=== PATIENT | male | born 1975 | race Caucasian/White ===

== ENCOUNTER 2020-02-12 11:55 | Emergency (ER) | payer MEDICARE, SELFPAY ==
--- NOTE | 2020-02-12 11:56 | ED_ITS ---
Entered by Gertrude Ji, acting as scribe for Nimesh Brown DO HPI - Extremity Problem General: Chief complaint: Extremity Injury, Upper Stated complaint: left HAND INJURY Time Seen by Provider: 02/12/20 11:56 History of Present Illness: HPI Narrative: 44 yo male presents with left hand injury. Pt states that he was using a saw and it kicked back on him. MD Complaint: extremity pain Onset (ago): hour(s) Pain Consistency: constant Quality: sharp and constant Review of Systems 2 General: Reports: 10 or more systems reviewed and unremarkable except in HPI and below PFSH ED PFSH: Social History Smoking and tobacco status: current every day smoker Physical Exam Narrative: EXAM NARRATIVE: Partial amputation of the left index finger. Near complete amputation of the left middle finger without distal blood flow. Patient suffered the wounds accidentally while using a table saw. Extremity: LEFT UPPER EXTREMITY: Yes hand & digits Course Vital Signs: Vital signs: Vital Signs Pulse Rate 89 02/12/20 13:09 Respiratory Rate 16 02/12/20 13:09 Blood Pressure 136/85 02/12/20 13:09 Pulse Oximetry 97 02/12/20 13:09 MDM - Extremity (Nontraumatic) MDM Narrative: Medical decision making narrative: Patient's wounds are too severe to be treated in the emergency department. I contacted [facility] and spoke with their hand surgeon who has accepted the patient for transfer. Patient will be emergently transferred to [facility] in [facility]. Discharge Plan Discharge Patient Disposition: Xfer Other Clinical Impression: Laceration of index finger Qualifiers: Encounter type: initial encounter Damage to nail status: unspecified Foreign body presence: unspecified Laterality: left Qualified Code(s): S61.211A - Laceration without foreign body of left index finger without damage to nail, initial encounter Laceration of middle finger Qualifiers: Encounter type: initial encounter Damage to nail status: unspecified Foreign body presence: unspecified Laterality: left Qualified Code(s): S61.213A - Lacera tion without foreign body of left middle finger without damage to nail, initial encounter Partial traumatic amputation of left index finger through phalanx Qualifiers: Encounter type: initial encounter Qualified Code(s): S68.621A - Partial traumatic transphalangeal amputation of left index finger, initial encounter Partial traumatic amputation of left middle finger through phalanx Qualifiers: Encounter type: initial encounter Qualified Code(s): S68.623A - Partial traumatic transphalangeal amputation of left middle finger, initial encounter Condition: Serious Discharge Orders: Transfer Out of Facility (Order); Ordered 02/12/20 Ordered By: Nimesh Brown Coding Level of Care Code ED Application Architect Manager for Chg Fwd Exam Problem Focused The documentation recorded by the Garrison novak Kialy, accurately reflects the service I personally performed and the decisions made by , Nimesh Brown, DO Feb 12, 2020 11:55
[2020-02-12 11:57] VITALS: BP 162/102; PULSE 106; RESP 22; O2SAT 96; BMI 25.7
--- NOTE | 2020-02-12 12:01 | XR_ITS ---
WS: [id number] XR hand LT min 3V* [id number] REASON FOR EXAM: trauma FINDINGS: A comminuted fracture of the middle second and third phalanges. The second phalanx shows displacement and angulation. XR/XR hand LT min 3V* [id number] IMPRESSION: Negative fractures of the middle second and third phalanges with angulation of the fractures.
[2020-02-12 12:16] VITALS: RESP 16
[2020-02-12] MEDS: ondansetron 2 mg/ML SDV 2 mL 4 MG IVP (12:16)
[2020-02-12] MEDS: morphine 4 mg/mL SDV 1 mL IVP (12:16)
[2020-02-12] MEDS: ceFAZolin 1,000 MG in sodium chloride 0.9% (plus) 50 ML 100 MG IV (12:17)
[2020-02-12] MEDS: fentaNYL 50 mcg/mL INJ 2mL IVP ×2 (12:28→13:50)
[2020-02-12] MEDS: sodium chloride 0.9% 1,000 ML 150 ML IV (12:30)
[2020-02-12 13:09] VITALS: BP 136/85; PULSE 89; RESP 16; O2SAT 97
== END 2020-02-12 14:06 | disposition other institution (70) ==
PROVIDERS: Emergency Provider Family Medicine
DX: S68.621A Partial traumatic transphalangeal amputation of left index finger, initial encounter (principal); S68.623A Partial traumatic transphalangeal amputation of left middle finger, initial encounter; F17.200 Nicotine dependence, unspecified, uncomplicated; W31.2XXA Contact with powered woodworking and forming machines, initial encounter
CPT/HCPCS: 12345; 73130; 96361; 96365; 96374; 96375; 99282; 99285; A4590; J0690; J2270; J2405; J3010; J7030

== ENCOUNTER 2020-05-15 20:00 | Outpatient (CLI) | payer OTHER, SELFPAY | END 2020-05-15 20:01 | disposition home or self-care (01) | LOC: SLEEP 05-16 08:37 | PROVIDERS: Visit Provider Psychiatry & Neurology Psychiatry | DX: G47.8 Other sleep disorders (principal); R06.83 Snoring; R53.83 Other fatigue | CPT/HCPCS: 95810 ==

== ENCOUNTER 2022-05-16 09:38 | Emergency (ER) | payer OTHER, MEDICARE, SELFPAY ==
[2022-05-16 09:45] VITALS: BP 143/101; PULSE 90; RESP 14; TEMP 36.5; O2SAT 98; BMI 27.9
--- NOTE | 2022-05-16 09:57 | ED_ITS ---
HPI - Abdominal Pain General: Chief Complaint: Abdominal Pain Stated Complaint: abd pain Time Seen by Provider: 05/16/22 09:39 History of Present Illness: Mr. Vanessa is a 46-year-old gentleman who presents to the emergency department due to abdominal pain. Onset of symptoms was appro ximately 6 hours ago and subacute. He was woken up by sleep with a severe right lower quadrant abdominal cramping. He has had associated nausea but no vomiting. He does endorse hematuria. There is no radiation of pain to testicles or groin. Denies trauma. Otherwise was previously at baseline h ealth. Overall course of symptoms has persisted. No other specific changes in health, exacerbating, or alleviating factors identified. Onset (ago): hour(s) Pain Consistency: constant Location: RLQ Severity: severe Quality: cramping Review of Systems General: Reports: 10 or more systems reviewed and unremarkable except in HPI and below PFSH ED PFSH: Medical History PTSD (post-traumatic stress disorder) Renal calculus Family History Mother Allergic to sunlight Cancer Skin Father , at age 72 Cancer Colon and lung Social History Smoking and tobacco status: current every day smoker Alcohol intake: current Alcohol intake frequency: few times a week Adopted: No Lives independently: Yes Housing: House Marital status: service: Yes branch: [employer] Current occupational status: disabled History of recent travel: No Physical Exam Const: COMMON NORMALS: alert GENERAL APPEARANCE: cooperative and well developed HENMT: COMMON NORMALS: normocephalic and atraumatic HEAD & SCALP: normocephalic and atraumatic Eye: COMMON NORMALS: conjunctivae normal CONJUNCTIVA: Yes conjunctivae normal SCLERA: sclerae normal Neck/C-Spine: COMMON NORMALS: supple GENERAL: Yes trachea midline Resp: COMMON NORMALS: normal respiratory effort EFFORT & INSPECTION: Yes able to speak in complete sentences Cardio: COMMON NORMALS: regular rate and regular rhythm RATE: regular rate RHYTHM: regular rhythm GI: COMMON NORMALS: Soft to palpation PALPATION: Yes Soft to palpation, Yes Tenderness to palpation present (GI), No Guarding due to palpation present (GI), No Rigid due to palpation and No Rebound tenderness present PERCUSSION: normal to percussion Extremity: GENERAL: Yes normal exam except as noted and No edema Neuro: COMMON NORMALS: moves all extremities SENSORIUM/ORIENTATION: Yes alert and No Orientation impaired Psych: COMMON NORMALS: mental status grossly normal and Normal thought process present THOUGHT PROCESS: Normal thought process present Course ED course: - Patient was seen and evaluated by me at bedside - Patient placed on cardiac monitors, IV access obtained - Initial evaluation notable for exam as above, somewhat uncomfortable appearing - Labs personally interpreted by me -Fluids, analgesia, antiemetic given - Labs notable for no leukocytosis, normal hemoglobin. Metabolic panel without acute abnormality with exception of mild transaminitis of uncertain etiology. Urinalysis with too numerous to count RBCs and WBCs though only trace bacteria. - Imaging notable for mild right hydronephrosis with perinephric stranding sec ondary to 1.2 cm partially obstructing calculus in the right renal pelvis. - Upon serial reexamination after treatment the patient was transiently improved and required additional doses of analgesia - Based on patient history, evaluation, and testing as interpreted the most likely cause of the patient's condition is nephrolithiasis. I am concerned given the number by consulting us otherwise uncontaminated sample that patient has infected kidney stone. Certainly given the size it is very unlikely to pass on its own. Unfortunately we do not have urology on-call. Antibiotic ordered. - The results of ED evaluation were discussed with the patient including plan for transfer due to requirement for level of care not available if discharged to prevent significant worsening/deterioration. - Patient was discussed with urology Dr. Phipps in [facility]. Recommended ER to ER transfer and I discussed with Dr. Almeida who accepted the patient as ER to ER transfer. - Patient was transferred and left to the emergency department without further deterioration or significant events. Note: Click bubbles or prepopulated lakhani in note writing are used for assistance with data collection and billing and are inherently more limited than narrative and other text portions of this note. Please use narrative for additional clinical history and defer to narrative/free test for any case of contradictory information. If information appears in only free text or click bubble it should be considered present or absent as reported. Please contact note senior underwriter for clarifications of clinical information or contradictory information. MDM is a brief summary, contradictory or erroneous seeming information should be clarified and full note should be reviewed. Vital Signs: Vital signs: Vital Signs Temperature 97.7 F 05/16/22 09:45 Pulse Rate 66 05/16/22 17:09 Respiratory Rate 16 05/16/22 17:28 Blood Pressure 127/79 05/16/22 17:09 Pulse Oximetry 96 05/16/22 17:28 MDM - Abdominal Pain Medical Decision Making 46-year-old gentleman presenting with abdominal pain. Patient found to have partially obstructing large kidney stone in the renal pelvis. Though patient has not had fevers yet he does have too numerous to count white blood cells in his urine which is concerning for infected kidney stone. Urology is not on-call at our facility. Patient transferred due to [place] for urology services and definitive care. Medical Records I reviewed the patient's medical records. Lab Data I reviewed the patient's lab results. : 05/16/22 10:23 05/16/22 10:23 Labs/Radiology: Radiology Impressions Abdomen/Pelvis CT 05/16/22 11:40 IMPRESSION: 1. Mild right-sided hydronephrosis and perinephric stranding, secondary to a 1.2 cm partially obstructing calculus in the right renal pelvis. 2. Additional findings, as above. Laboratory Results WBC 6.8 10^3/uL (4.0-10.0) 05/16/22 10:23 RBC 4.96 10^6/uL (4.1-5.3) 05/16/22 10:23 Hgb 15.4 g/dL (11.7-16.6) 05/16/22 10:23 Hct 44.0 % (42.0-52.0) 05/16/22 10:23 MCV 88.7 fl (80-94) 05/16/22 10:23 MCH 31.0 pg (28.0-34.0) 05/16/22 10:23 MCHC 35.0 g/dL (30.0-36.0) 05/16/22 10:23 RDW 12.2 % (12.1-15.1) 05/16/22 10:23 Plt Count 164 10^3/cmm (130-400) 05/16/22 10:23 MPV 11.5 fL (7.4-10.4) H 05/16/22 10:23 Neut % (Auto) 55.8 % 05/16/22 10:23 Lymph % (Auto) 34.7 % 05/16/22 10:23 Juncos % (Auto) 5.9 % 05/16/22 10:23 Eos % (Auto) 2.7 % 05/16/22 10:23 Baso % (Auto) 0.6 % 05/16/22 10:23 Neut # (Auto) 3.77 10^3/uL (1.8-7.7) 05/16/22 10:23 Lymph # (Auto) 2.3 10^3/uL (0.8-4.8) 05/16/22 10:23 Juncos # (Auto) 0.4 10^3/uL (0.2-0.9) 05/16/22 10:23 Eos # (Auto) 0.2 10^3/uL (0.0-0.8) 05/16/22 10:23 Baso # (Auto) 0.0 10^3/uL (0.0-0.1) 05/16/22 10:23 Nucleated RBC % (auto) 0 % 05/16/22 10:23 Nucleated RBCs # 0.0 /100WBC 05/16/22 10:23 Sodium 139 mmol/L (136-145) 05/16/22 10:23 Potassium 4.5 mmol/L (3.5-5.1) 05/16/22 10:23 Chloride 104 mmol/L (98-107) 05/16/22 10:23 Carbon Dioxide 24 mmol/L (22-29) 05/16/22 10:23 Anion Gap 15.5 (5-19) 05/16/22 10:23 BUN 10 mg/dL (6-20) 05/16/22 10:23 Creatinine 0.8 mg/dL (0.7-1.2) 05/16/22 10:23 GFR Calculation 104.5 mL/min (90-130) 05/16/22 10:23 Glucose 102 mg/dL (65-115) 05/16/22 10:23 Calculated Osmolality 287 mOsm/kg (285-295) 05/16/22 10:23 Calcium 8.7 mg/dL (8.5-10.5) 05/16/22 10:23 Total Bilirubin 0.4 mg/dL (0.15-1.2) 05/16/22 10:23 AST 101 U/L (0-40) H 05/16/22 10:23 ALT 122 U/L (0-41) H 05/16/22 10:23 Alkaline Phosphatase 89 IU/L (40-130) 05/16/22 10:23 Total Protein 7.6 g/dL (6.6-8.7) 05/16/22 10:23 Albumin 4.8 g/dL (3.5-5.2) 05/16/22 10:23 Globulin 2.8 g/dL (1.3-4.6) 05/16/22 10:23 Lipase 22 U/L (13-60) 05/16/22 10:23 Urine Color Yellow (Yellow) 05/16/22 13:26 Urine Appearance Hazy (CLEAR) A 05/16/22 13:26 Urine pH 8 (5-7) H 05/16/22 13:26 Ur Specific [place] 1.015 (1.005-1.030) 05/16/22 13:26 Urine Protein 1+ (Negative) H 05/16/22 13:26 Urine Glucose (UA) Norm (Normal) 05/16/22 13:26 Urine Ketones Negative (Negative) 05/16/22 13:26 Urine Blood 3+ (Negative) H 05/16/22 13:26 Urine Nitrate Negative (Negative) 05/16/22 13:26 Urine Bilirubin Neg (Negative) 05/16/22 13:26 Urine Urobilinogen Norm mg/dL (Negative) 05/16/22 13:26 Ur Leukocyte Esterase 2+ (Negative) H 05/16/22 13:26 Urine RBC Too numerous to cnt /hpf (0-2) H 05/16/22 13:26 Urine WBC Too numerous to cnt /hpf (0-5) H 05/16/22 13:26 Ur Squamous Epith Cells 0-4 /hpf (0-5) H 05/16/22 13:26 Amorphous Sediment Not Reportable 05/16/22 13:26 Urine Bacteria Trace /hpf (NONE) 05/16/22 13:26 Discharge Plan Discharge Patient Disposition: Transfer to ED Clinical Impression: Kidney stone, Hydronephrosis, Pyuria Condition: Stable Prescriptions: No Action cephalexin 500 mg capsule 500 mg PO TID 0RF tamsulosin 0.4 mg capsule 0.4 mg PO DAILY 0RF sertraline 100 mg Tablet 100 mg PO DAILY 0RF cyclobenzaprine 10 mg Tablet 10 mg PO TID PRN (Reason: Muscle Pain) 0RF quetiapine [Seroquel] 200 mg Tablet 100 mg PO BEDTIME 0RF buspirone 10 mg Tablet 10 mg PO BID PRN (Reason: Anxiety) 0RF naproxen 500 mg Tablet 500 mg PO BID 0RF rosuvastatin [Crestor] 40 mg Tablet 40 mg PO DAILY 0RF cholecalciferol (vitamin D3) [Vitamin D3] 50 mcg (2,000 unit) Tablet 50 mcg PO DAILY 0RF Coding Level of Care Code ED Forklift Technician for Bernabeg Fwd Exam Comprehensive
[2022-05-16 10:31] LABS: Basophils % 0.6 %; Eosinophils # 0.2 10^3/uL (0.0-0.8); Eosinophils % 2.7 %; Hemoglobin 15.4 g/dL (11.7-16.6); Lymphocytes # 2.3 10^3/uL (0.8-4.8); Lymphocytes % 34.7 %; Mean Corpuscular Volume 88.7 fl (80-94); Mean Platelet Volume 11.5 fL (7.4-10.4); Monocytes # 0.4 10^3/uL (0.2-0.9); Monocytes % 5.9 %; Neutrophils # 3.77 10^3/uL (1.8-7.7); Neutrophils % 55.8 %; Nucleated Red Blood Cells % 0 %; Platelet Count 164 10^3/cmm (130-400); Red Blood Count 4.96 10^6/uL (4.1-5.3); Red Cell Distribution Width 12.2 % (12.1-15.1); White Blood Count 6.8 10^3/uL (4.0-10.0)
[2022-05-16 10:37] VITALS: RESP 18; O2SAT 96
[2022-05-16] MEDS: morphine 4 mg/mL SDV 1 mL IVP ×3 (10:37→17:28)
[2022-05-16] MEDS: ondansetron 2 mg/ML SDV 2 mL 4 MG IVP (10:37)
[2022-05-16 10:49] LABS: Alanine Aminotransferase 122 U/L (0-41); Albumin Level 4.8 g/dL (3.5-5.2); Alkaline Phosphatase 89 IU/L (40-130); Anion Gap 15.5 (5-19); Aspartate Amino Transferase 101 U/L (0-40); Blood Urea Nitrogen 10 mg/dL (6-20); Calcium 8.7 mg/dL (8.5-10.5); Carbon Dioxide 24 mmol/L (22-29); Chloride 104 mmol/L (98-107); Globulin 2.8 g/dL (1.3-4.6); Glomerular Filtration Rate 104.5 mL/min (90-130); Glucose 102 mg/dL (65-115); Lipase 22 U/L (13-60); Osmolality Calculated 287 mOsm/kg (285-295); Potassium 4.5 mmol/L (3.5-5.1); Sodium 139 mmol/L (136-145); Total Bilirubin 0.4 mg/dL (0.15-1.2); Total Protein 7.6 g/dL (6.6-8.7)
--- NOTE | 2022-05-16 11:40 | CTR_ITS ---
PROCEDURE INFORMATION: Exam: CT Abdomen And Pelvis Without Contrast Exam date and time: 05/16/2022 11:56 AM Age: 46 years old Clinical indication: Abdominal pain; Localized; Right lower quadrant (rlq); Additional info: Rlq pain, hematuria reported TECHNIQUE: Imaging protocol: Computed tomography of the abdomen and pelvis without contrast. Axial, coronal and sagittal reformatted images were created and reviewed. Radiation optimization: All CT scans at this facility use at least one of these dose optimization techniques: automated exposure control; mA and/or kV adjustment per patient size (includes targeted exams where dose is matched to clinical indication); or iterative reconstruction. COMPARISON: CT abdomen pelvis w con* [id number] 08/31/2019 3:04 PM RADIATION DOSE METRICS: Total DLP (mGy-cm): 1178.1 FINDINGS: Lungs: Mild dependent atelectatic change at the lung bases. Liver: Mild hepatic steatosis. Gallbladder and bile ducts: No radiodense gallstones. No biliary ductal dilatation. Pancreas: Unremarkable. Spleen: Unremarkable. Adrenal glands: Normal. No mass. Kidneys and ureters: Mild right-sided hydronephrosis and perinephric stranding, secondary to a 1.2 cm partially obstructing calculus in the right renal pelvis. Nonobstructing right renal calculi. Stomach and bowel: No bowel wall thickening. No obstruction. No pneumatosis. Appendix: Normal. Intraperitoneal space: No free fluid. No organized fluid collection. No free air. Vasculature: Mild atherosclerotic disease. No aneurysm. Lymph nodes: No pathologically enlarged lymph nodes. Urinary bladder: Unremarkable as visualized. Reproductive: Unremarkable. Bones/joints: No acute osseous abnormality. Mild degenerative changes. Soft tissues: Unremarkable. CT/CT kidney stone [id number] IMPRESSION: 1. Mild right-sided hydronephrosis and perinephric stranding, secondary to a 1.2 cm partially obstructing calculus in the right renal pelvis. 2. Additional findings, as above.
[2022-05-16] MEDS: sodium chloride 0.9% 1,000 ML 999 ML IV (11:46)
[2022-05-16 12:45] VITALS: RESP 16; O2SAT 95
[2022-05-16 13:20] VITALS: BP 131/62; PULSE 81; RESP 16; O2SAT 96
[2022-05-16 14:01] LABS: Specific Gravity, Urine 1.015 (1.005-1.030); Urine Appearance Hazy (CLEAR); Urine Color Yellow (Yellow); pH Urine 8 (5-7)
[2022-05-16 14:02] LABS: Add Urine Microscopic? YES; Bilirubin Urine Neg (Negative); Blood Urine 3+ (Negative); Glucose Urine UA Norm (Normal); Ketones Urine Negative (Negative); Leukocyte Esterase Urine 2+ (Negative); Nitrate Urine Negative (Negative); Protein Urine 1+ (Negative); RBC Urine TOO NUMEROUS TO CNT /hpf (0-2); Urobilinogen Urine Norm (Negative)
[2022-05-16 14:03] LABS: Add Urine Culture? Yes; Bacteria Urine TRACE /hpf; Squamous Epithelial Cell Urine 0-4 /hpf (0-5); WBC Urine TOO NUMEROUS TO CNT /hpf (0-5)
[2022-05-16] MEDS: piperacillin-tazobactam 4.5 GM in sodium chloride 0.9% (plus) 50 ML IV (14:59)
[2022-05-16 17:09] VITALS: BP 127/79; PULSE 66; RESP 16; O2SAT 96
[2022-05-16 17:28] VITALS: RESP 16; O2SAT 96
--- NOTE | 2022-05-17 11:26 | DCPLANNER ---
Addendum entered by Dolores Panda 05/29/22 18:40: Patient had a follow up appointment scheduled for 05.22.[address] Lynch at urology - patient did attend appointment. Addendum entered by Dolores Panda 05/17/22 11:27: management manager sent patients information to [facility]. Original Note: management manager had message to schedule a follow up appointment for patient with urology. management manager sent patients information to the front office staff at urology. Patients information will be printed and reviewed. Clinic will call patient with appointment information.
== END 2022-05-16 17:47 ==
PROVIDERS: Emergency Provider Emergency Medicine
DX: N13.30 Unspecified hydronephrosis (principal); R82.81 Pyuria; N20.0 Calculus of kidney; Z87.442 Personal history of urinary calculi; F17.210 Nicotine dependence, cigarettes, uncomplicated
CPT/HCPCS: 74176; 80053; 81001; 83690; 85025; 87086; 96365; 96375; 96376; 99284; J2270; J2405; J2543; J7030

== ENCOUNTER 2022-05-22 13:20 | Outpatient (CLI) | payer OTHER, MEDICARE, SELFPAY ==
--- NOTE | 2022-05-22 13:40 | XR_ITS ---
WS: [id number] XR KUB [id number] REASON FOR EXAM: STONES FINDINGS: Right ureteral stent is in place in proper. 14 mm round calculus near the proximal end of the uretera l stent. Smaller intrarenal calculi also present. No left renal calculi identified. No calculi along the course of the ureters and no bladder calculus. No other significant findings in the abdomen or pelvis. XR/XR KUB [id number] IMPRESSION: Right renal calculi in right ureteral stent as above.
== END 2022-05-22 13:21 | disposition home or self-care (01) ==
LOC: RAD 13:22
PROVIDERS: Visit Provider Urology
DX: N20.0 Calculus of kidney (principal); N13.30 Unspecified hydronephrosis
CPT/HCPCS: 74018; 81003; 99204

== ENCOUNTER 2022-05-28 05:29 | Day surgery (SDC) | payer OTHER, SELFPAY ==
[2022-05-27 12:24] VITALS: BMI 27.2
--- NOTE | 2022-05-28 | SCC_ITS ---
Procedure done: 1. Cystoscopy, removal of right ureteral stent 2. Right flexible ureterorenoscopy with laser lithotripsy, stent replacement 61.6 seconds of fluoroscopic guidance, for a cumulative dose of 16.86 mGy, was provided to Dr. Lynch by the radiology department. C-arm images of the abdomen were saved for the patient's permanent record. [facility]
--- NOTE | 2022-05-28 05:49 | SC_ITS ---
WS: [id number] INTRAOPERATIVE TECHNIQUE: 3 Spot fluoroscopic images for intraoperative purposes. FLUOROSCOPY TIME: 61.6 seconds CLINICAL INFORMATION: Right renal calculus, preop ureteroscopy FINDINGS: RIGHT double-J ureteral stent placement SC/C-arm FL for Urology IMPRESSION: Images obtained for intraoperative purposes.
--- NOTE | 2022-05-28 05:51 | P.HPUD_ITS ---
Surgery/Procedure H&P Update DATE OF PROCEDURE: May 28, 2022 DATE H&P PERFORMED: 05/22/22 H&P UPDATE INFORMATION: I have reviewed H&P completed within last 30 days, I have examined patient prior to procedure, No changes to prior documentation and H&P is in [facility] on date indicated PREOP DIAGNOSIS: Large right renal calculus status post stenting PLANNED PROCEDURE: Operation Date: 05/28/22 07:10 Proposed Procedures p CYSTOSCOPY RIGHT RETROGRADE URETEROSCOPY LASER STENT EXCHANGE [id number],N13.30(Not Applicable) - Mauro Lynch MD s Retrograde Pyelogram(Right) - Mauro Lynch MD s Laser Lithotripsy(Right) - Mauro Lynch MD s Ureteral Stent Exchange(Right) - Mauro Lynch MD
[2022-05-28 06:06] VITALS: BP 144/101; PULSE 75; RESP 18; TEMP 36.7; O2SAT 98
[2022-05-28] MEDS: sodium chloride 0.9% 1,000 ML 30 ML IV (06:21)
[2022-05-28] MEDS: levofloxacin-dextrose 5 % 500 MG/100 ML PREMIX 100 MG IV (06:58)
--- NOTE | 2022-05-28 07:01 | PM.OP ---
Operative Report Date of procedure: May 28, 2022 Pre-op diagnosis: Large right renal calculus status post stenting Post-op diagnosis: Large right renal calculus status post stenting Procedure done: 1. Cystoscopy, removal of right ureteral stent 2. Right flexible ureterorenoscopy with laser lithotripsy, stent replacement Implants: 6 Yoruba by 26 cm double-pigtail stent without string Specimens removed/disposition: Stone fragments Pathology: Stone fragments Surgeon: Cris Anesthesia: General Estimated blood loss: Minimal Urine output: Not measured Complications: None Findings: 1. Stones were readily accessible with flexible ureteroscope 2. Well fragmented Brief History: Mr. Vanessa is a pleasant 46-year-old white male recently diagnosed with obstructing large 1.4 cm right UPJ stone. It occurred while I was out of town and he was transferred to [facility] where stent was placed. He is being admitted to outpatient surgery today for an attempt at definitive therapy treatment of the large stone and 2 additional stones in the collecting system. He has had a stent indwelling since that time. See H&P Procedure: After routine preoperative evaluation examination and obtaining of informed consent he was taken to the operating suite on 05/28/2022 where general anesthesia was inserted without difficulty after appropriate timeout was performed, SCDs confirmed to be functioning, preoperative antibiotics administered, beta-beth protocol confirmed. Prepped and draped in usual sterile fashion in dorsolithotomy position paying careful attention to avoiding pressure points. 21 Yoruba cystoscope with 30 degree lens was introduced into the urethra meatus and advanced into the bladder to videoscopy. Bladder systematically examined. No stones were seen. Stent in the expected position without significant encrustation. Flexible tip guidewire was then advanced up the right ureter next to the stent and the stent was removed with grasping forceps. A second guidewire was then passed. The first was secured to the drapes as a safety wire and the second was utilized as a working wire. A 34 cm ureteral access sheath was then advanced over the working wire to the hub. The flexible ureteroscope was then advanced through the sheath up into the kidney and the guidewire removed. The large stone of the 2 additional stones in the calyces were identified. A 200 ?m thulium superpulse laser fiber was utilized to fragment the stones mostly into sand and very small particles. Much of this was flushed out through the sheath. On final inspection there were no large fragments remaining. The sheath was back loaded onto the hub of the scope and the ureter was carefully inspected as the scope was removed. There was no significant trauma. Based on the bulk of the sand and small fragments remaining it was decided to leave a temporary stent. Cystoscope was then backloaded over the safety wire and a 6 Yoruba by 26 cm double-pigtail stent was advanced over the guidewire through the cystoscope into appropriate position as confirmed via fluoroscopy and cystoscopy. Stent was confirmed to be draining. Sheep [employer] Worker stone fragments were sent for pathologic evaluation. Procedure completed. Tolerated procedure well without complications; was awakened in the operating room and returned recovery in stable condition. PLANS: 1. Anticipate discharge from 2. Follow-up next week for cystoscopy stent removal. KUB first
[2022-05-28 07:19] LABS: Anion Gap 16.9 (5-19); Blood Urea Nitrogen 14 mg/dL (6-20); Calcium 8.5 mg/dL (8.5-10.5); Carbon Dioxide 22 mmol/L (22-29); Chloride 106 mmol/L (98-107); Glomerular Filtration Rate 104.5 mL/min (90-130); Glucose 90 mg/dL (65-115); Osmolality Calculated 292 mOsm/kg (285-295); Potassium 3.9 mmol/L (3.5-5.1); Sodium 141 mmol/L (136-145)
[2022-05-28] MEDS: iohexol 300 mg/mL 50 mL Btl (OR ONLY) XX (07:21)
--- NOTE | 2022-05-28 07:48 | ANES.PREANE2 ---
Pre-Anesthetic Assessment Height/Weight: Height 1.78 m Weight 86.183 kg Temp Pulse Resp BP Pulse Ox 98.0 F 75 18 144/101 98 05/28/22 06:06 05/28/22 06:06 05/28/22 06:06 05/28/22 06:06 05/28/22 06:06 Preop Diagnosis: Large right renal calculus status post stenting Operation Date: 05/28/22 07:10 Proposed Procedures p CYSTOSCOPY RIGHT RETROGRADE URETEROSCOPY LASER STENT EXCHANGE 00077,N13.30(Not Applicable) - Mauro Lynch MD s Retrograde Pyelogram(Right) - Mauro Lynch MD s Laser Lithotripsy(Right) - Mauro Lynch MD s Ureteral Stent Exchange(Right) - Mauro Lynch MD Familial anesthetic complications: None Was Beta Navneet taken within 24 hours: N/A Was Clonidine taken within 24 hours: N/A Last intake: Intake Last Liquid Date 05/27/22 Last Liquid Time 20:00 Last Solid Date 05/27/22 Last Solid Time 17:00 Social Tobacco and No alcohol Exam alert, oriented x 3, clear to auscultation bilaterally and regular rate & rhythm Airway Submandibular: within normal limits Cervical ROM: within normal limits Mallampati: Class II Dentition: chipped Comments: Comments: Missing some Pulmonary Chronic Obstructive Pulmonary Disease Kidney stones Metabolic Hyperlipidemia Neuropsych Anxiety and Depression PTSD Anesthetic Plan ASA status: 3 Anesthesia: General Medications/Allergies Home Medications Medication Instructions Recorded Confirmed Last Taken Type sertraline 100 mg tablet 100 mg PO DAILY 02/12/20 05/28/22 05/28/22 History buspirone 10 mg tablet 10 mg PO BID PRN 05/16/22 05/27/22 Unknown History cholecalciferol (vitamin D3) 50 50 mcg PO DAILY 05/16/22 05/28/22 05/28/22 History mcg (2,000 unit) tablet (Vitamin D3) cyclobenzaprine 10 mg tablet 10 mg PO TID PRN 05/16/22 05/27/22 Unknown History naproxen 500 mg tablet 500 mg PO BID 05/16/22 05/28/22 05/27/22 History quetiapine 200 mg tablet (Seroquel) 100 mg PO BEDTIME 05/16/22 05/28/22 05/28/22 History rosuvastatin 40 mg tablet (Crestor) 40 mg PO DAILY 05/16/22 05/28/22 05/27/22 History cephalexin 500 mg capsule 500 mg PO TID 05/22/22 05/27/22 Unknown History tamsulosin 0.4 mg capsule 0.4 mg PO DAILY 05/22/22 05/28/22 05/27/22 History Allergies Allergy/AdvReac Type Severity Reaction Status Date / Time acetaminophen Allergy ALGY-Redness Verified 05/22/22 14:48 [From Darvocet-N] of Skin propoxyphene Allergy ALGY-Redness Verified 05/22/22 14:48 [From Darvocet-N] of Skin Current Medications Generic Name Dose Route Start Last Admin Trade Name Freq PRN Reason Stop Dose Admin Sodium Chloride 1,000 mls @ 30 mls/hr 05/28/22 06:00 05/28/22 07:36 Sodium Chloride 0.9% IV 05/29/22 05:59 Infused .Q24H RODNEY Infusion PFSH Anesthesia Medical History PTSD (post-traumatic stress disorder) Renal calculus Family History Mother Allergic to sunlight Cancer Skin Father , at age 72 Cancer Colon and lung Social History Smoking and tobacco status: current every day smoker Alcohol intake: current Alcohol intake frequency: few times a week Adopted: No Lives independently: Yes Housing: House Marital status: service: Yes branch: [employer] Current occupational status: disabled History of recent travel: No Data Anesthesia : 05/28/22 06:08 BMP 05/28/22 06:08 Sodium 141 Potassium 3.9 Chloride 106 Carbon Dioxide 22 BUN 14 Creatinine 0.8 Glucose 90 Calcium 8.5 Cardiac Studies: No Data to Display
[2022-05-28 08:07] VITALS: BP 157/96; PULSE 96; RESP 22; TEMP 36.3; O2SAT 97
[2022-05-28 08:10] VITALS: BP 130/89; PULSE 81; RESP 15; O2SAT 96
[2022-05-28 08:15] VITALS: BP 122/75; PULSE 77; RESP 20; O2SAT 96
[2022-05-28 08:20] VITALS: BP 123/77; PULSE 76; RESP 14; O2SAT 97
[2022-05-28 08:25] VITALS: BP 141/91; PULSE 74; RESP 16; TEMP 36.4; O2SAT 97
--- NOTE | 2022-05-28 16:31 | ANE.PACU2 ---
Inpatient post-anesthesia follow up: Airway intact: Yes Vital signs: Temperature 97.5 F Pulse Rate 74 Respiratory Rate 16 Blood Pressure 141/91 Pulse Oximetry 97 Oxygen Delivery Me thod Room Air Oxygen Flow Rate Fraction of Inspir ed Oxygen Hydration adequate: Yes Nausea and vomiting: No Pain level: 2 Mental status: Baseline
[2022-05-31 21:16] LABS: Stone Source RIGHT URETER
== END 2022-05-28 09:05 | disposition home or self-care (01) ==
PROVIDERS: PCP Physician Assistant; Visit Provider Urology
PROC: 0TJB8ZZ Inspection of Bladder, Via Natural or Artificial Opening Endoscopic (ICD-10-PCS; CPT 52000; principal; 2022-05-28 07:00)
PROC: (CPT 74420; 2022-05-28 07:00)
PROC: (CPT 52356; 2022-05-28 07:00)
PROC: (CPT 52356; 2022-05-28 07:00)
DX: N20.0 Calculus of kidney (principal); J44.9 Chronic obstructive pulmonary disease, unspecified; E78.5 Hyperlipidemia, unspecified; F41.9 Anxiety disorder, unspecified; F32.9 Major depressive disorder, single episode, unspecified; F17.210 Nicotine dependence, cigarettes, uncomplicated
CPT/HCPCS: 52356; 36415; 76000; 80048; 82365; 88300; C2625; J1100; J1956; J2250; J2370; J2405; J2704; J3010; J3535; J7030

== ENCOUNTER 2022-06-02 12:02 | Outpatient (CLI) | payer OTHER, SELFPAY | END 2022-06-02 12:03 | disposition home or self-care (01) | LOC: RAD 12:04 | PROVIDERS: PCP Physician Assistant; Visit Provider Urology | DX: N20.0 Calculus of kidney (principal); Z96.0 Presence of urogenital implants | CPT/HCPCS: G0463; 74018; 81003; 82365; 88300; 99213 ==

== ENCOUNTER 2022-06-13 08:10 | Outpatient (CLI) | payer OTHER, SELFPAY | END 2022-06-13 08:11 | disposition home or self-care (01) | PROVIDERS: PCP Physician Assistant; Visit Provider Urology | DX: N20.0 Calculus of kidney (principal); Z96.0 Presence of urogenital implants | CPT/HCPCS: 74018; 81003; 87086; 99213 ==

== ENCOUNTER 2022-06-23 08:51 | Day surgery (SDC) | payer OTHER, SELFPAY ==
[2022-06-20 10:00] VITALS: BMI 27.9
--- NOTE | 2022-06-23 03:42 | P.HPUD_ITS ---
Surgery/Procedure H&P Update DATE OF PROCEDURE: June 23, 2022 DATE H&P PERFORMED: 06/13/22 H&P UPDATE INFORMATION: I have reviewed H&P completed within last 30 days, I have examined patient prior to procedure, No changes to prior documentation and [place] [facility] [place] indicated CHANGES TO PREVIOUS DOCUMENTATION: KUB confirmed residual fragments identified at last clinic visit. We agreed to proceed as planned. PREOP DIAGNOSIS: Large right renal calculus status post stenting PLANNED PROCEDURE: Operation Date: 06/23/22 10:45 Proposed Procedures p RIGHT EXTRACORPOREAL SHOCKWAVE LITHOTRIPSY POSSIBLE CYSTOSCOPY STENT EXCHANGE 50681 30352,N20.0(Right) - Mauro Lynch MD s Cystoscopy(Not Applicable) - Mauro Lynch MD s Ureteral Stent Exchange(Right) - Mauro Lynch MD
--- NOTE | 2022-06-23 08:56 | XRR_ITS ---
PROCEDURE INFORMATION: Exam: XR Abdomen Exam date and time: 06/23/2022 9:00 AM Age: 46 years old Clinical indication: Screening exam; Other: Preop right eswl; Prior surgery; Surgery type: Kidney stents TECHNIQUE: Imaging protocol: Radiologic exam of the abdomen. Views: Frontal supine view of the abdomen. 1 View. COMPARISON: CR XR KUB [id number] 06/13/2022 8:25 AM FINDINGS: Tubes, catheters and devices: A persistent right ureteral stent in similar position. Gastrointestinal tract: Nonspecific intestinal gas pattern without extreme gas distension. Organs: No definite visualized calcification in the vicinity of left renal shadow. Numerous residual calcifications in the vicinity of the lower right kidney and adjacent to the lower aspect of the proximal pigtail of the stent near the central medial right kidney. Bones/joints: Unremarkable. XR/XR KUB [id number] IMPRESSION: 1. Persistent right ureteral stent. 2. Persistent mid to lower right renal and medial right kidney or renal sinus calcifications suspicious for persistent intrarenal calculi.
--- NOTE | 2022-06-23 09:59 | ANES.PREANE2 ---
Pre-Anesthetic Assessment Height/Weight: Height 1.78 m Weight 88.451 kg O2 Del Method 06/23/22 09:19 Preop Diagnosis: Residual right renal stone fragments Operation Date: 06/23/22 10:35 Proposed Procedures p RIGHT EXTRACORPOREAL SHOCKWAVE LITHOTRIPSY POSSIBLE CYSTOSCOPY STENT EXCHANGE [id number] 10204,N20.0(Right) - Mauro Lynch MD s Cystoscopy(Not Applicable) - Mauro Lynch MD s Ureteral Stent Exchange(Right) - Mauro Lynch MD Familial anesthetic complications: None Was Beta Navneet taken within 24 hours: N/A Was Clonidine taken within 24 hours: N/A Last intake: Intake Last Liquid Date 06/22/22 Last Liquid Time 21:00 Last Solid Date 06/22/22 Last Solid Time 18:00 Social No alcohol and No tobacco Exam alert, oriented x 3, clear to auscultation bilaterally and regular rate & rhythm Airway Submandibular: within normal limits Cervical ROM: within normal limits Mallampati: Class II Comments: Comments: Missing most teeth History/ROS No significant complaints Pulmonary None reported CV/HEM None reported Renal calculus Hepatic None reported GI None reported Metabolic None reported Musc/skel None reported Neuropsych PTSD Anesthetic Plan ASA status: 2 Anesthesia: Anesthesia Evaluation and General Other: We discussed risk and benefits of general anesthesia including PONV, sore throat (sometimes severe), corneal abrasion, positioning and peripheral nerve injuries, life threatening allergic reaction, post operative ICU admission requiring prolonged intubation, stroke, heart attack, , and rare incidences of recall. Patient consents to proceed with general anesthesia. Risk of > 500 ml blood loss (7ml/kg in children): No Medications/Allergies Home Medications Medication Instructions Recorded Confirmed Last Taken Type sertraline 100 mg tablet 100 mg PO DAILY 02/12/20 06/23/22 06/22/22 History buspirone 10 mg tablet 10 mg PO BID PRN Anxiety 05/16/22 06/23/22 1 Month Ago History ~05/23/22 cholecalciferol (vitamin D3) 50 50 mcg PO DAILY 05/16/22 06/23/22 06/22/22 History mcg (2,000 unit) tablet (Vitamin D3) cyclobenzaprine 10 mg tablet 10 mg PO TID PRN Muscle Pain 05/16/22 06/23/22 06/22/22 History naproxen 500 mg tablet 500 mg PO BID 05/16/22 06/23/22 06/22/22 History quetiapine 200 mg tablet (Seroquel) 100 mg PO BEDTIME 05/16/22 06/23/22 06/22/22 History rosuvastatin 40 mg tablet (Crestor) 40 mg PO DAILY 05/16/22 06/23/22 06/22/22 History Allergies Allergy/AdvReac Type Severity Reaction Status Date / Time acetaminophen Allergy ALGY-Redness Verified 06/13/22 08:55 [From Darvocet-N] of Skin propoxyphene Allergy ALGY-Redness Verified 06/13/22 08:55 [From Darvocet-N] of Skin PFSH Anesthesia Medical History PTSD (post-traumatic stress disorder) Renal calculus Family History Mother Allergic to sunlight Cancer Skin Father , at age 72 Cancer Colon and lung Social History Smoking and tobacco status: never smoked Alcohol intake: current Alcohol intake frequency: few times a week Adopted: No Lives independently: Yes Housing: House Marital status: service: Yes branch: [employer] Current occupational status: disabled History of recent travel: No Data Anesthesia Cardiac Studies: No Data to Display
[2022-06-23] MEDS: sodium chloride 0.9% 1,000 ML 30 ML IV (10:03)
--- NOTE | 2022-06-23 11:19 | PM.OP ---
Operative Report Date of procedure: June 23, 2022 Pre-op diagnosis: Residual right renal stone fragments . Post-op diagnosis: Residual right renal stone fragments . Procedure done: 1. Extracorporeal shockwave lithotripsy to right renal stone fragments Specimens removed/disposition: None Surgeon: Cris Stacker And Sorter Operator: Roman: Lithotripsy medical records field technician Anesthesia: General Estimated blood loss: None Urine output: Not measured Complications: None Findings: Stones easily identified and focused upon. 2500 shocks administered: Good change . Condition: stable Disposition: PACU Brief History: Mr. Vanessa is a very pleasant 46-year-old white male recently diagnosed in [place] with an obstructing severely symptomatic large right UPJ stone. He had a stent placed emergently. Initially was treated here on 05/28/2022 with endoscopic laser lithotripsy with what appeared to be excellent change. On follow-up he still had some fragments that appear to be potentially too large to pass. Was given more time to assess for aggregate small fragments versus residual larger fragments and on follow-up it appeared that some had cleared but some did not and for that reason he is elected retreatment now with ESWL and lieu of ureteroscopy. We discussed stent change versus waiting and depending on the results. . Procedure: After routine preoperative evaluation examination and obtaining of informed consent he was taken to the operating suite on 06/23/2022 where general anesthesia was administered without difficulty after appropriate timeout was performed, SCDs confirmed to be functioning, preoperative antibiotics administered, beta-beth protocol confirmed. Positioned on the Dornier unit in supine position with shock head positioned posteriorly. Stone fragments were easily focused upon. Shockwave therapy was initiated at a low intensity advanced to an intensity of 8. Rate was initiated at 70. A 3-minute pause was conducted after about 300 shocks. Change was noted early and at the completion of the procedure there was a dramatic difference in appearance. Based on these results it was decided to not change the stent and instead anticipate stent removal in the office next week. He was awakened in the operating room and returned to recovery room in stable condition. PLANS: 1. Anticipate discharge from outpatient surgery 2. Follow-up next week with KUB for likely cystoscopy stent removal. .
[2022-06-23] MEDS: levofloxacin-dextrose 5 % 500 MG/100 ML PREMIX 100 MG IV (11:30)
[2022-06-23 12:30] VITALS: BP 123/85; PULSE 80; RESP 16; TEMP 36.8; O2SAT 97
[2022-06-23 12:35] VITALS: BP 121/83; PULSE 74; RESP 18; O2SAT 97
[2022-06-23 12:40] VITALS: BP 141/75; PULSE 67; RESP 18; O2SAT 98
[2022-06-23 12:45] VITALS: BP 138/81; PULSE 69; RESP 18; TEMP 36.8; O2SAT 98
[2022-06-23 12:50] VITALS: BP 115/73; PULSE 70; RESP 18; TEMP 36.7; O2SAT 98
[2022-06-23 12:56] VITALS: BP 124/83; PULSE 69; RESP 18; O2SAT 99
--- NOTE | 2022-06-23 13:13 | ANE.PACU2 ---
Inpatient post-anesthesia follow up: Airway intact: Yes Vital signs: Temperature 98.1 F Pulse Rate 69 Respiratory Rate 18 Blood Pressure 124/83 Pulse Oximetry 99 Oxygen Delivery Me thod Room Air Oxygen Flow Rate Fraction of Inspir ed Oxygen Hydration adequate: Yes Nausea and vomiting: No Pain level: 1 Mental status: Baseline
== END 2022-06-23 13:08 | disposition home or self-care (01) ==
PROVIDERS: PCP Physician Assistant; Visit Provider Urology
PROC: (CPT 50590; principal; 2022-06-23 10:25)
DX: N20.0 Calculus of kidney (principal)
CPT/HCPCS: 50590; 74018; J1100; J1956; J2405; J2704; J3010; J3490; J7030

== ENCOUNTER 2022-07-03 12:13 | Outpatient (CLI) | payer OTHER, SELFPAY ==
--- NOTE | 2022-07-03 12:15 | XR_ITS ---
WS: [id number] XR KUB [id number] REASON FOR EXAM: RENAL CALCULUS FINDINGS: Right ureteral stent in proper position. Calculi within the right kidney present on the previous examination of 06/23/2022 are no longer identif iable in the right kidney, along the stent, or within the bladder. No left intrarenal or ureteral calculi identified. XR/XR KUB [id number] IMPRESSION: Properly positioned right ureteral stent. Right intrarenal calculi no longer id entifiable as above.
== END 2022-07-03 12:14 | disposition home or self-care (01) ==
LOC: RAD 12:13
PROVIDERS: PCP Physician Assistant; Visit Provider Urology
DX: N20.0 Calculus of kidney (principal); Z96.0 Presence of urogenital implants; F43.10 Post-traumatic stress disorder, unspecified
CPT/HCPCS: 52310; 74018; 99024

== ENCOUNTER 2023-01-08 12:34 | Outpatient (CLI) | payer OTHER, SELFPAY ==
--- NOTE | 2023-01-08 12:41 | XR_ITS ---
WS: [id number] KUB, AP view, 01/08/2023 Clinical Data: Renal Calculus Comparison: KUB, 07/03/2022 Findings: No abnormal intraabdominal masses or calcifications are seen. There is no dilatated small bowel or ev idence of obstruction. The right ureteral stent has been removed. XR/XR KUB [id number] Impression: Negative KUB.
== END 2023-01-08 12:35 | disposition home or self-care (01) ==
LOC: RAD 12:36
PROVIDERS: PCP Physician Assistant; Visit Provider Urology
DX: N20.0 Calculus of kidney (principal)
CPT/HCPCS: 74018; 81003; 99213

== ENCOUNTER 2023-04-04 11:08 | Emergency (ER) | payer OTHER, SELFPAY ==
[2023-04-04 11:14] VITALS: PULSE 96; RESP 16; TEMP 36.7; O2SAT 99
--- NOTE | 2023-04-04 11:22 | XRR_ITS ---
PROCEDURE INFORMATION: Exam: XR Left Finger(s) Exam date and time: 04/04/2023 11:25 AM Age: 47 years old Clinical indication: Injury or trauma; Other: Laceration; Left; Index finger; Additional info: Injury/ laceration - L index TECHNIQUE: Imaging protocol: Radiologic exam of the distal left 2nd digit. Views: Minimum 2 views. COMPARISON: No relevant prior studies available. FINDINGS: Bones/joints: No fracture identified. No dislocation. Soft tissues: No radiopaque retained foreign bodies. XR/XR finger LT min 2V [id number] IMPRESSION: No acute findings.
--- NOTE | 2023-04-04 11:24 | ED_ITS ---
HPI - Wound/Laceration General: Chief Complaint: Wound/Laceration Stated Complaint: finger lac Time Seen by Provider: 04/04/23 11:18 Source: patient Mode of arrival: ambulatory History of Present Illness: 47-year-old male presents to the emergency room with complaints of injury to the dorsum of the left index finger. Using a router there is some kickback router came back and the blade cut the back of his left index finger. He is tightly wrapped on arrival here no active bleeding. His last tetanus shot was less than last 2 years. Onset (ago): minute(s) Location: other (Left index finger) Place: home Patient tetanus UTD: Yes Context: accidental Associated symptoms: Denies chills, fever(s), nausea or vomiting Treatments prior to arrival: bandage Review of Systems Const: Denies: fever(s) or chills Card: Denies: chest pain Resp: Denies: dyspnea, productive cough or non-productive cough GI: Denies: abdominal pain, nausea or vomiting PFS ED PFSH: Medical History Anxiety and depression PTSD (post-traumatic stress disorder) Renal calculus Urolithiasis Surgical History History of ear surgery History of ear, nose, and throat (ENT) surgery History of foot surgery History of hand surgery History of tonsillectomy and adenoidectomy S/P ureteral stent placement Status post extracorporeal shock wave therapy Family History Mother Allergic to sunlight Cancer Skin Father , at age 72 Cancer Colon and lung Social History Smoking and tobacco status: current some day smoker Alcohol intake: current Alcohol intake frequency: few times a week Substance/Drug Use: current Substance/Drug use frequency: few times a month Adopted: No Lives independently: Yes Housing: House Marital status: service: Yes branch: [employer] Current occupational status: disabled Physical Exam Const: GENERAL APPEARANCE: cooperative and comfortable ORIENTATION/CONSCIOUSNESS: Yes awake, Yes oriented to person, Yes oriented to place and Yes oriented to time HENMT: COMMON NORMALS: normocephalic, atraumatic and hearing grossly normal bilaterally HEAD & SCALP: normocephalic and atraumatic Resp: COMMON NORMALS: normal respiratory effort, No retractions, No use of accessory muscles and clear to auscultation bilaterally AUSCULTATION: clear to auscultation bilaterally Extremity: OTHER: Macerated tissue overlying the middle phalanx of the left index finger. No active bleeding small amount of bruising. Patient able to flex against resistance. Patient is able to extend at the MP and PIP joints but at the DIP joint he is not able to extend against resistance or even gravity. Neuro: SENSORIUM/ORIENTATION: Yes oriented to person, Yes oriented to place and Yes oriented to time Skin: COMMON NORMALS: no rashes or lesions noted GENERAL SKIN EXAM: no rashes or lesions noted Course Vital Signs: Vital signs: Vital Signs Temperature 98.1 F 04/04/23 11:14 Pulse Rate 96 04/04/23 11:14 Respiratory Rate 16 04/04/23 11:14 Pulse Oximetry 99 04/04/23 11:14 Oxygen Delivery Me thod Room Air 04/04/23 11:14 MDM - Wound/Laceration Medical Decision Making Wound care instructions given his extensor tendon appears to be compromised at the DIP joint. We will refer him to hand surgery. Wound dressed finger wrapped in an extended position. Case management to refer to hand surgery. Nurse addressed the wound discharge the patient. We contacted him back had him come back to have them in a DIP joint splint to hold the finger in extension. Lab Data Radiology Impressions Finger X-Ray 04/04/23 11:22 IMPRESSION: No acute findings. Discharge Plan Discharge Patient Disposition: Home Clinical Impression: Laceration, Extensor tendon disruption Condition: Stable Prescriptions: New mupirocin 2 % ointment 1 applic topical DAILY Qty: 15 0RF tramadol 50 mg tablet 50 mg PO QID PRN (Reason: pain) Qty: 10 0RF cephalexin 500 mg capsule 500 mg PO TID 7 Days Qty: 21 0RF No Action sertraline 100 mg Tablet 100 mg PO DAILY cyclobenzaprine 10 mg Tablet 10 mg PO TID PRN (Reason: Muscle Pain) quetiapine [Seroquel] 200 mg Tablet 100 mg PO BEDTIME buspirone 10 mg Tablet 10 mg PO BID PRN (Reason: Anxiety) naproxen 500 mg Tablet 500 mg PO BID rosuvastatin [Crestor] 40 mg Tablet 40 mg PO DAILY cholecalciferol (vitamin D3) [Vitamin D3] 50 mcg (2,000 unit) Tablet 50 mcg PO DAILY Discharge Orders: Discharge ED (Routine); Ordered 04/04/23 Ordered By: Kobi Mix Referrals: Rossy Norton PA [Primary Care Provider] - Discharge Diet: Usual diet Discharge Activity: Resume usual activity Patient Instructions: Opioid Safety, Pain Management Activity Restrictions/Additional Instructions: You were seen today for maceration of the hand from a woodworking tool. There is really not adequate tissue to suture. Recommend changing dressing once a day apply topical antibiotic ointment and Telfa. Case management will help make arrangements for follow-up with hand surgery for the extensor tendon. Start oral antibiotic 1 3 times a day for 1 week. Coding Level of Care Code ED Nail Making Machine Setter for Joseph Lassiter
[2023-04-04] MEDS: TRAMadol 50 mg Tablet PO (11:33)
[2023-04-04] MEDS: ceFAZolin 1,000 MG in water for injection-sterile 2.5 ML 1 MG IM (11:33)
--- NOTE | 2023-04-06 08:43 | DCPLANNER ---
Addendum entered by Dolores Panda 04/10/23 10:34: Patient had a follow up appointment scheduled with ortho - patient did attend appointment. Addendum entered by Dolores Panda 04/09/23 08:53: Patient has a follow up appointment scheduled for March at 9:[address] Cano at ortho. Original Note: field services manager had message to schedule a follow up appointment for patient with ortho. field services manager sent patients information to the front office staff at ortho. Patients information will be printed and reviewed. Clinic will call patient with appointment information.
== END 2023-04-04 12:11 | disposition home or self-care (01) ==
PROVIDERS: Emergency Provider Family Medicine; PCP Physician Assistant
DX: S61.211A Laceration without foreign body of left index finger without damage to nail, initial encounter (principal); S66.301A Unspecified injury of extensor muscle, fascia and tendon of left index finger at wrist and hand level, initial encounter; F17.210 Nicotine dependence, cigarettes, uncomplicated; W31.89XA Contact with other specified machinery, initial encounter
CPT/HCPCS: 73140; 96372; 96374; 99284; J0690

== ENCOUNTER → 2023-04-09 09:40 | Outpatient (BNVA) | payer OTHER, SELFPAY | PROVIDERS: PCP Physician Assistant; Referring Provider Family Medicine; Visit Provider Student in an Organized Health Care Education/Training Program | DX: S56.422A Laceration of extensor muscle, fascia and tendon of left index finger at forearm level, initial encounter (principal); S61.201A Unspecified open wound of left index finger without damage to nail, initial encounter; W31.89XA Contact with other specified machinery, initial encounter | CPT/HCPCS: 99204 ==

== ENCOUNTER 2023-04-10 11:36 | Day surgery (SDC) | payer OTHER, SELFPAY ==
[2023-04-09 16:30] VITALS: BMI 27.9
[2023-04-10] VITALS (7 sets, daily range): BP systolic 135–168; BP diastolic 86–97; PULSE 56–71; RESP 16–18; TEMP 36.1–36.9; O2SAT 97–100
--- NOTE | 2023-04-10 | XR_ITS ---
WS: [id number] 3 views of the left second finger, 04/10/2023 Clinical Data: extensor repair left index finger Comparison: Left second finger, 04/04/2023 Findings: Dr. Hyde performed a fusion of the DIP joint of the left second finger with a longitudinal orthopedi c wire in the middle and distal phalanges. XR/XR finger LT min 2V [id number] Impression: Fusion of the DIP joint of the left second finger.
[2023-04-10] MEDS: ketorolac 30 mg/mL INJ IVP (12:11)
[2023-04-10] MEDS: sodium chloride 0.9% 1,000 ML 30 ML IV (12:11)
--- NOTE | 2023-04-10 12:21 | ANES.PREANE2 ---
Pre-Anesthetic Assessment Height/Weight: Height 1.78 m Weight 88.451 kg Temp Pulse Resp BP Pulse Ox O2 Del Method 98.4 F 71 18 148/97 100 Room Air 04/10/23 12:03 04/10/23 12:03 04/10/23 12:03 04/10/23 12:03 04/10/23 12:03 04/10/23 12:03 Preop Diagnosis: left index finger laceration extensor tendon injury Operation Date: 04/10/23 13:00 Proposed Procedures p wound exploration with extensor tendon repair left index finger/ 79538,S56.429A; S61.209A(Left) - Andrés Rachael, DO s Tendon Repair Finger Extensor Tendon Repair Finger(Left) - Andrés Rachael, Familial anesthetic complications: none Was Beta Navneet taken within 24 hours: N/A Was Clonidine taken within 24 hours: N/A Last intake: Intake Last Liquid Date 04/10/23 Last Liquid Time 08:00 Last Solid Date 04/09/23 Last Solid Time 19:00 Social Tobacco and No alcohol Exam alert, oriented x 3, clear to auscultation bilaterally and regular rate & rhythm Airway Mallampati: Class II Dentition: partials Metabolic Hyperlipidemia Anesthetic Plan ASA status: 2 Anesthesia: Choice Risk of > 500 ml blood loss (7ml/kg in children): No Medications/Allergies Home Medications Medication Instructions Recorded Confirmed Last Taken Type sertraline 100 mg tablet 100 mg PO DAILY 02/12/20 04/09/23 04/10/23 History buspirone 10 mg tablet 10 mg PO BID PRN Anxiety 05/16/22 04/09/23 1 Day Ago History ~04/08/23 cholecalciferol (vitamin D3) 50 50 mcg PO DAILY 05/16/22 04/09/23 04/10/23 History mcg (2,000 unit) tablet (Vitamin D3) cyclobenzaprine 10 mg tablet 10 mg PO TID PRN Muscle Pain 05/16/22 04/09/23 04/09/23 History naproxen 500 mg tablet 500 mg PO BID 05/16/22 04/09/23 04/10/23 History quetiapine 200 mg tablet (Seroquel) 100 mg PO BEDTIME 05/16/22 04/09/23 04/10/23 History rosuvastatin 40 mg tablet (Crestor) 40 mg PO DAILY 05/16/22 04/09/23 04/09/23 History cephalexin 500 mg capsule 500 mg PO TID 7 days #21 caps 04/04/23 04/09/23 04/09/23 Rx Allergies Allergy/AdvReac Type Severity Reaction Status Date / Time acetaminophen Allergy ALGY-Redness Verified 04/10/23 11:56 [From Darvocet-N] of Skin propoxyphene Allergy ALGY-Redness Verified 04/10/23 11:56 [From Darvocet-N] of Skin Current Medications Generic Name Dose Route Start Last Admin Trade Name Freq PRN Reason Stop Dose Admin Sodium Chloride 1,000 mls @ 30 mls/hr 04/10/23 12:00 04/10/23 12:11 Sodium Chloride 0.9% IV 04/11/23 11:59 30 mls/hr .Q24H RODNEY Administration PFSH Anesthesia Medical History Anxiety and depression PTSD (post-traumatic stress disorder) Renal calculus Urolithiasis Surgical History History of ear surgery History of ear, nose, and throat (ENT) surgery History of foot surgery History of hand surgery History of tonsillectomy and adenoidectomy S/P ureteral stent placement Status post extracorporeal shock wave therapy Family History Mother Allergic to sunlight Cancer Skin Father , at age 72 Cancer Colon and lung Social History Smoking and tobacco status: current some day smoker Alcohol intake: current Alcohol intake frequency: few times a week Substance/Drug Use: current Substance/Drug use frequency: few times a month Adopted: No Lives independently: Yes Housing: House Marital status: service: Yes branch: [employer] Current occupational status: disabled Data Anesthesia Cardiac Studies: No Data to Display
--- NOTE | 2023-04-10 12:28 | W.PM.OPSUD ---
Surgery/Procedure H&P Update DATE OF PROCEDURE: April 10, 2023 DATE H&P PERFORMED: 04/09/23 CHANGES TO PREVIOUS DOCUMENTATION: None. No change in HPI since office visit yesterday. Understands the ins and outs of procedure and elects to proceed with surgical intervention all questions answered. PREOP DIAGNOSIS: left index finger laceration extensor tendon injury PRIMARY INDICATION FOR PROCEDURE: Left index finger laceration, extensor tendon injury PLANNED PROCEDURE: Operation Date: 04/10/23 13:00 Proposed Procedures p wound exploration with extensor tendon repair left index finger/ 93567,S56.429A; S61.209A(Left) - Andrés Cano DO s Tendon Repair Finger Extensor Tendon Repair Finger(Left) - Andrés Cano DO
[2023-04-10] MEDS: ceFAZolin 2,000 MG in sodium chloride 0.9% (plus) 50 ML 100 MG IV (15:34)
[2023-04-10] MEDS: lidocaine 2% INJ 20 mL 5 ML INJECTION (15:49)
[2023-04-10] MEDS: neomycin-poly-bacitracin oint 28 gm 1 APPLIC TOPICAL (16:36)
--- NOTE | 2023-04-10 16:53 | P.OP_ITS ---
Operative Report Date of procedure: April 10, 2023 Pre-op diagnosis: Preop Diagnosis left index finger laceration extensor tendon injury Post-op diagnosis: Left index finger zone 2 extensor tendon laceration, with DIP left index finger arthrotomy, and dorsal finger soft tissue defect Procedure done: Left index finger irrigation debridement and wound exploration (4 cm x 1 cm x 0.5 cm) Left index finger extensor tendon repair Left index finger closed reduction percutaneous pinning DIP joint Implants: 1x 0.0.45 K wire Surgeon: Andrés Cano DO Estimated blood loss: 2mL 38min IV fluids: 800 mL Complications: None Findings: See operative report narrative Condition: stable Disposition: same day Brief History: Patient is a 47-year-old male who sustained an injury to the left index finger cortisone to the extensor tendon he is found to have an extensor tendon laceration zone 2 secondary to a terrazzo grinder bit that created a large defect in the dorsal aspect of his index finger. He has DIP extensor tendon lag noted. Talked about this in detail and treatment options as far as nonoperative and operative intervention. At this point time through shared decision making and in the office patient like to proceed with wound exploration and extensor tendon repair. He understands the risk benefits complication alternatives with surgical nonsurgical treatment options. Understanding his risk for surgery agrees to proceed with surgical intervention all questions answered. Consent obtained. Procedure: Patient brought in seen evaluated in the preoperative holding area. Consent was reviewed and signed with patient. Correct extremity was then marked. Patient was then seen eval by anesthesia once cleared for surgery patient was then taken back to the operative suite patient was then transported on the OR table all bony prominences well-padded patient was appropriate secured to the bed. Armboard applied to the left upper arm. Nonsterile tourniquet applied to left arm. Patient underwent anesthesia per the anesthesia department once properly anesthetized the left upper extremity was then prepped and draped in sterile orthopedic fashion. Final timeout was performed. Patient received appropriate preoperative antibiotics. Esmarch tourniquet was used to exsanguinate the left upper extremity and tourniquet was insufflated to 250 mmHg. Local anesthesia was used to perform digital block for operative and postoperative pain First I evaluated the wound bed the terrazzo grinder had severely disrupted the entire aspect of patient's zone 2 on the ulnar side of the digit dorsally of the soft tissue envelope particularly in the skin. This was debrided of all devitalized skin tissue taken to healthy granulation tissue over the residual extensor tendon mechanism. I then extended the incision both proximally and distally to have a full evaluation of the extensor tendon injury. Patient's extensor tendon was disrupted by the terrazzo grinder with a laceration involving greater than 60% of the extensor tendon. There was some remanent of the tendon on the ulnar aspect whic h I feel would be an amendable to suture repair the rest unfortunately was gone with the terrazzo grinder and will likely end up needing to granulate in with the soft tissue defect. Further inspection of the laceration did demonstrate that there was a DIP arthrotomy that was noted. This point time I used performed a extensive irrigation and debridement of the DIP joint as well as of the finger this was roughly 4 cm x 1 cm x 0.5 cm this was debrided of skin subcutaneous tissue fascia tendon and bone. Once appropriate debridement to healthy tissue which my debridement was performed with sharp scalpel excision. Once this was performed I then thoroughly irrigated the wound bed. Once this was done I then reapproximated the DIP arthrotomy with 4-0 Monocryl suture. Next I then utilized 2-0 Vicryl suture to reapproximate the remanent of the extensor tendon laceration which helped restore patient's distal insertion and restore the patient's extension of the DIP joint showing no extensor lag. In order to protect this repair I then performed a closed reduction and percutaneous pinning of the DIP joint with the 0.45 K wire this was done in center center position across the DIP joint holding this reduced to protect my repair this was used and performed with mini fluoroscopic imaging. Once confirmed to be in appropriate position this was advanced to the base of the middle phalanx and. Satisfied my fixation I subsequently bent cut and capped the pin. This completed my extensor tendon repair there was a noticeable dorsal skin defect that was noted that could not be reapproximated with suture as result I reapproximated all the rest of the skin edges that I could and then covered this with bacitracin ointment versus healing by secondary intention. At this point time I then let the tour niquet down hemostasis was maintained with exact bipolar electrocautery and then thoroughly irrigated the wound bed once more. I then coated the open wound with bacitracin ointment covered with ABDs, 4 x 4's, Latricia wrap and a volar splint with Ted wrap was then applied. Patient was then awake from anesthesia and taken to PACU in stable condition. Disposition: Post-op Plan: Patient taken to PACU in stable condition recovering well dressings on in place clean dry and intact.? Patient received appropriate discharge instructions as well as pain medication postoperatively.? Plan will be for patient to be began daily Vaseline gauze changes over the dorsal aspect of the finger to help encourage granulation tissue secondary to skin loss from terrazzo grinder.? Patient will follow-up in the orthopedic office in 1 week for wound check at that point in time he may begin PIP range of motion and begin working on daily Vaseline gauze dressing changes of the dorsal skin defect.? Patient continue antibiotics from emergency department.? Patient understands agrees with current plan.? All questions answered.
--- NOTE | 2023-04-10 16:53 | P.OP_ITS ---
Brief Operative Note Date of procedure: 04/14/23 Pre-op diagnosis: Left index finger extensor tendon zone 2 laceration Post-op diagnosis: same (With DIP joint arthrotomy) Procedure Done: Left index finger irrigation debridement and wound exploration (4 cm x 1 cm x 0 .5 cm) Left index finger extensor tendon repair Left index finger closed reduction percutaneous pinning DIP joint Surgeon: Andrés Cano Estimated blood loss (mL): 2 Complications: None Patient does have noticeable dorsal skin loss as well as disruption of the magazine grinder loader creating a dorsal soft tissue defect and skin loss goals for hopefully granulation and inside out healing however may need later graft coverage Post-op Plan: Patient taken to PACU in stable condition recovering well dressings on in place clean dry and intact. Patient received appropriate discharge instructions as well as pain medication postoperatively. Plan will be for patient to be began daily Vaseline gauze changes over the dorsal aspect of the finger to help encourage granulation tissue secondary to skin loss from magazine grinder loader. Patient will follow-up in the orthopedic office in 1 week for wound check at that point in time he may begin PIP range of motion and begin working on daily Vaseline gauze dressing changes of the dorsal skin defect. Patient continue antibiotics from e mergency department. Patient understands agrees with current plan. All questions answered. Condition: stable Disposition: same day Coding Level of Care Code Acute Code for Joseph Lassiter
--- NOTE | 2023-04-10 16:53 | PM.PACU ---
PACU note Narrative: Patient taken to PACU in stable condition recovering well. Pain controlled. Digital anesthesia still in effect unable to have sensation to the left index finger dressings on in place is clean dry and intact. Toes warm well-perfused brisk capillary refill less than 2 seconds Exam: awake Disposition: discharged
--- NOTE | 2023-04-10 17:09 | ANE.PACU2 ---
Inpatient post-anesthesia follow up: Airway intact: Yes Vital signs: Temperature 97.3 F Pulse Rate 60 Respiratory Rate 16 Blood Pressure 149/86 Pulse Oximetry 97 Oxygen Delivery Me thod Room Air Oxygen Flow Rate Fraction of Inspir ed Oxygen Hydration adequate: Yes Nausea and vomiting: No Pain level: 1 Mental status: Baseline
[2023-04-10] MEDS: HYDROcodone-acetaminophen 5-325 mg Tablet 1 TAB PO (17:24)
== END 2023-04-10 17:50 | disposition home or self-care (01) ==
PROVIDERS: PCP Physician Assistant; Visit Provider Student in an Organized Health Care Education/Training Program
PROC: (CPT 11042; principal; 2023-04-10 12:50)
PROC: (CPT 11042; 2023-04-10 12:50)
PROC: (CPT 11042; 2023-04-10 12:50)
PROC: (CPT 11042; 2023-04-10 12:50)
DX: S66.321A Laceration of extensor muscle, fascia and tendon of left index finger at wrist and hand level, initial encounter (principal); W29.8XXA Contact with other powered hand tools and household machinery, initial encounter; E78.5 Hyperlipidemia, unspecified; F41.9 Anxiety disorder, unspecified; F32.A Depression, unspecified; F43.10 Post-traumatic stress disorder, unspecified; F17.200 Nicotine dependence, unspecified, uncomplicated
CPT/HCPCS: 11042; 26418; 26776; 73140; 76000; C1713; J0690; J1885; J2704; J3010; J3490; J7030

== ENCOUNTER → 2023-04-17 10:30 | Outpatient (BNVA) | payer OTHER, SELFPAY | PROVIDERS: PCP Physician Assistant; Visit Provider Nurse Practitioner Family | DX: S61.201D Unspecified open wound of left index finger without damage to nail, subsequent encounter (principal); S66.321D Laceration of extensor muscle, fascia and tendon of left index finger at wrist and hand level, subsequent encounter; X58.XXXD Exposure to other specified factors, subsequent encounter | CPT/HCPCS: 99024 ==

== ENCOUNTER → 2023-04-24 08:28 | Outpatient (BNVA) | payer OTHER, SELFPAY | PROVIDERS: PCP Physician Assistant; Visit Provider Nurse Practitioner Family | DX: S56.422D Laceration of extensor muscle, fascia and tendon of left index finger at forearm level, subsequent encounter (principal); S61.202D Unspecified open wound of right middle finger without damage to nail, subsequent encounter; X58.XXXD Exposure to other specified factors, subsequent encounter | CPT/HCPCS: 73130; 99024; 99213 ==

== ENCOUNTER → 2023-05-01 08:18 | Outpatient (BNVA) | payer OTHER, SELFPAY | PROVIDERS: PCP Physician Assistant; Visit Provider Nurse Practitioner Family | DX: S56.422D Laceration of extensor muscle, fascia and tendon of left index finger at forearm level, subsequent encounter (principal); S61.202D Unspecified open wound of right middle finger without damage to nail, subsequent encounter; X58.XXXD Exposure to other specified factors, subsequent encounter | CPT/HCPCS: 99024 ==

== ENCOUNTER → 2023-05-08 10:16 | Outpatient (BNVA) | payer OTHER, SELFPAY | PROVIDERS: PCP Physician Assistant; Visit Provider Student in an Organized Health Care Education/Training Program | DX: S56.422A Laceration of extensor muscle, fascia and tendon of left index finger at forearm level, initial encounter (principal); S61.201A Unspecified open wound of left index finger without damage to nail, initial encounter; X58.XXXA Exposure to other specified factors, initial encounter | CPT/HCPCS: 99024; 99213 ==

== ENCOUNTER → 2023-05-21 15:00 | Outpatient (BNVA) | payer OTHER, SELFPAY | PROVIDERS: PCP Physician Assistant; Visit Provider Student in an Organized Health Care Education/Training Program | DX: S56.422A Laceration of extensor muscle, fascia and tendon of left index finger at forearm level, initial encounter (principal); S61.202A Unspecified open wound of right middle finger without damage to nail, initial encounter; X58.XXXA Exposure to other specified factors, initial encounter | CPT/HCPCS: 73130; 99213 ==

== ENCOUNTER → 2023-07-09 13:51 | Outpatient (BNVA) | payer OTHER, SELFPAY | PROVIDERS: PCP Physician Assistant; Visit Provider Student in an Organized Health Care Education/Training Program | DX: S56.422A Laceration of extensor muscle, fascia and tendon of left index finger at forearm level, initial encounter; S61.202A Unspecified open wound of right middle finger without damage to nail, initial encounter; X58.XXXA Exposure to other specified factors, initial encounter | CPT/HCPCS: 73130; 99213 ==

== ENCOUNTER → 2025-05-08 07:52 | Outpatient (BNVA) | payer OTHER, SELFPAY | PROVIDERS: PCP Physician Assistant; Visit Provider Student in an Organized Health Care Education/Training Program | DX: Z12.11 Encounter for screening for malignant neoplasm of colon (principal) | CPT/HCPCS: 99204 ==

== ENCOUNTER 2025-05-23 10:04 | Day surgery (SDC) | payer OTHER, SELFPAY ==
[2025-05-23 10:19] VITALS: BP 151/94; PULSE 74; RESP 16; TEMP 36.7; O2SAT 99
--- NOTE | 2025-05-23 10:29 | ANES.PREANE2 ---
Pre-Anesthetic Assessment Height/Weight: Height 1.78 m Weight 74.843 kg Temp Pulse Resp BP Pulse Ox O2 Del Method 98.1 F 74 16 151/94 99 Room Air 05/23/25 10:19 05/23/25 10:19 05/23/25 10:19 05/23/25 10:19 05/23/25 10:19 05/23/25 10:19 Operation Date: 05/23/25 11:30 Proposed Procedures p Colonoscopy 09568 G0121, Z12.11(Not Applicable) - Johnathon Loco MD Familial anesthetic complications: screening Was Beta Navneet taken within 24 hours: N/A Was Clonidine taken within 24 hours: N/A Last intake: Intake Last Liquid Date 05/23/25 Last Liquid Time 07:00 Last Solid Date 05/21/25 Last Solid Time 20:00 Social Alcohol and Tobacco Marijuana use daily Exam alert, oriented x 3, clear to auscultation bilaterally and regular rate & rhythm Airway Submandibular: within normal limits Cervical ROM: within normal limits Mallampati: Class II Comments: Comments: chipped multiple. Pulmonary Sleep Apnea (non-compliant) CV/HEM Palpitations renal stones Hepatic history of alcoholism patient states its questionable nothing on chart. GI None reported Metabolic Hyperlipidemia Musc/sk Lower Back Pain Neuropsych PTSD Anesthetic Plan ASA status: 2 Anesthesia: MAC Medications/Allergies Home Medications ?Medication ?Instructions ?Recorded ?Confirmed ?Last Taken ?Type cholecalciferol (vitamin D3) 50 50 mcg PO DAILY 05/16/22 05/23/25 05/21/25 History mcg (2,000 unit) tablet (Vitamin D3) rosuvastatin 40 mg tablet (Crestor) 40 mg PO DAILY 05/16/22 05/23/25 05/21/25 History melatonin 5 mg capsule 5 mg PO DAILY 05/08/25 05/23/25 05/21/25 History mirtazapine 15 mg tablet 15 mg PO DAILY 05/08/25 05/23/25 05/21/25 History Allergies Allergy/AdvReac Type Severity Reaction Status Date / Time acetaminophen (From Allergy ALGY-Redness Verified 05/18/25 08:34 Darvocet-N) of Skin oxycodone (From Percocet) Allergy Unknown Verified 05/18/25 08:34 propoxyphene (From Allergy ALGY-Redness Verified 05/18/25 08:34 Darvocet-N) of Skin Current Medications Generic Name Dose Route Start Last Admin Trade Name Freq PRN Reason Stop Dose Admin Sodium Chloride 1,000 mls @ 15 mls/hr 05/23/25 10:11 05/23/25 10:25 Sodium Chloride 0.9% IV 05/24/25 10:10 15 mls/hr .Q24H PRN Administration COLONOSCOPY FLUIDS PFSH Anesthesia Medical History Urolithiasis Anxiety and depression Renal calculus PTSD (post-traumatic stress disorder) Surgical History (Updated 05/08/25 @ 08:[address]) History of foot surgery History of tonsillectomy and adenoidectomy History of ear, nose, and throat (ENT) surgery History of ear surgery History of hand surgery Status post extracorporeal shock wave therapy S/P ureteral stent placement Family History Mother Allergic to sunlight Cancer Skin Father , at age 72 Cancer Colon and lung Social History Smoking and tobacco/nicotine status: current every day tobacco/nicotine user Alcohol intake: current Alcohol intake frequency: few times a week Substance/Drug Use: current Substance/Drug use frequency: few times a month Adopted: No Lives independently: Yes Housing: House Marital status: service: Yes branch: [employer] Current occupational status: disabled
--- NOTE | 2025-05-23 10:35 | W.PM.OPSUD ---
Surgery/Procedure H&P Update DATE OF PROCEDURE: May 23, 2025 DATE H&P PERFORMED: 05/08/25 H&P UPDATE INFORMATION: I have reviewed H&P completed within last 30 days, I have examined patient prior to procedure and No changes to prior documentation PLANNED PROCEDURE: Operation Date: 05/23/25 11:30 Proposed Procedures p Colonoscopy 15984 G0121, Z12.11(Not Applicable) - Johnathon Loco MD
[2025-05-23 11:08] VITALS: BP 104/66; PULSE 74; RESP 18; TEMP 36.1; O2SAT 100
== END 2025-05-23 11:28 | disposition home or self-care (01) ==
PROVIDERS: PCP Physician Assistant; Visit Provider Student in an Organized Health Care Education/Training Program
PROC: 0DJD8ZZ Inspection of Lower Intestinal Tract, Via Natural or Artificial Opening Endoscopic (ICD-10-PCS; CPT 45378; principal; 2025-05-23 11:30)
DX: Z12.11 Encounter for screening for malignant neoplasm of colon (principal); F17.200 Nicotine dependence, unspecified, uncomplicated; E78.5 Hyperlipidemia, unspecified; Z79.899 Other long term (current) drug therapy
CPT/HCPCS: 45378; J2250; J2704; J7030

== ENCOUNTER 2025-07-25 06:50 | Outpatient (CLI) | payer OTHER, SELFPAY ==
--- NOTE | 2025-07-25 07:10 | USCV_ITS ---
Jhon Vanessa Age: 49 Gender: M : 1975 Exam Date: 07/25/2025 07:21 Ordering Phys: Sariah Doherty MD Technologist: Exam Location: [facility] [place] Indication: afib cp head injury BP: 120 / 70 HR: 65 Rhythm: Sinus Technical Quality: Adequate MEASUREMENTS (Male / Female) Normal Values 2D ECHO LV Diastolic Diameter PLAX 4.2 cm 4.2 - 5.9 / 3.9 - 5.3 cm IVS Diastolic Thickness 1.1 cm 0.6 - 1.0 / 0.6 - 0.9 cm IVS Systolic Thickness 1.7 cm LVPW Diastolic Thickness 1.3 cm 0.6 - 1.0 / 0.6 - 0.9 cm LVPW Systolic Thickness 1.8 cm LVOT Diameter 2.1 cm LV Ejection Fraction 2D Teich 54.7 % LV Ejection Fraction MOD 4C 59.9 % LV Ejection Fraction MOD 2C 77.0 % LV Ejection Fraction 2C AL 76.9 % LA Diameter 2.9 cm LA Sys Volume AL 47.4 cm cubed LA Sys Volume Index AL 25.0 cm cubed/m squared Aorta at Sinotubular Diameter 2.7 cm M-MODE LA Ao Ratio MM 1.2 AV Cusp Separation MM 2.1 cm DOPPLER AV Peak Velocity 159.0 cm/s LVOT Peak Velocity 119.0 cm/s AV Area Cont Eq vti 3.0 cm squared AV Area Cont Eq pk 2.6 cm squared MV Peak Velocity 95.0 cm/s MV Area PHT 4.5 cm squared Mitral E to A Ratio 1.4 TR Peak Velocity 207.0 cm/s TR Peak Gradient 17.1 mmHg FINDINGS Left Ventricle Normal LV size and ejection fraction of 55%. No gross wall motion abnormalities noted.mild left ventricular hypertrophy. Right Ventricle The right ventricle is normal in size and function. Right Atrium The right atrium is normal in size. Left Atrium The left atrium is normal in size. Mitral Valve No gross abnormalities noted Aortic Valve No gross abnormalities noted Tricuspid Valve Trace tricuspid valve regurgitation. Pulmonic Valve Pulmonic valve not well visualized. Pericardium Normal pericardium without effusion. Aorta Normal aortic annulus size. IVC Inferior vena cava not visualized. CONCLUSIONS Normal LV size and ejection fraction of 55%. No gross wall motion abnormalities noted.mild left ventricular hypertrophy. Normal cardia chamber sizes. There is no pericardial effusion. There are no intracardiac masses. Trace tricuspid valve regurgitation. Estimated pulmonary artery peak systolic pressure possibly within normal limit No similar previous studies are available for comparison Dr Leopoldo Shaw MD FAC (Electronically Signed) Final Date: 27 July 2025 21:11 S
== END 2025-07-25 06:51 | disposition home or self-care (01) ==
LOC: CDL 06:51 → RAD 06:53
PROVIDERS: PCP Physician Assistant; Visit Provider Family Medicine
DX: I48.91 Unspecified atrial fibrillation (principal); R07.9 Chest pain, unspecified
CPT/HCPCS: 93306